=== PATIENT | male | born 2005 | race Caucasian/White ===

== ENCOUNTER 2024-06-19 20:27 | Emergency (ER) | payer BC, SELFPAY ==
[2024-06-19 20:30] VITALS: BP 126/69; PULSE 71; RESP 20; TEMP 36.6; O2SAT 98; BMI 26.4
--- NOTE | 2024-06-19 20:31 | ED_ITS ---
HPI - General Adult General Chief complaint: General Medical Stated complaint: ?Electrolyte imbalance/sent from [facility] Time Seen by Provider: 06/19/24 23:55 Source: patient Mode of arrival: ambulatory Limitations: no limitations History of Present Illness ED Provider: Dr. Andrew Richards HPI narrative: 19-year-old male with no significant past medical history who presents emergency department for evaluation of numbness and tingling of his hands and feet after fasting for 48 hours. Patient states that he was fasting in order to lose weight. He states that he was drinking water with Liquid IV which contain vitamin B vitamins: 3 (niacin), 5 (pantothenic acid), 6 (paroxetine), 12 (cobalamin), sodium, potassium, glucose. He states that he lost 6 lb over 2 days . He states that he was feeling fine while he was fasting but after eating he developed numbness of his upper and lower extremities. He states that the numbness is bilateral from the hands the elbows and from the feet to the knees. He denied facial numbness, perioral numbness or change in sensation of his tongue. He denied any weakness. He denied lightheadedness or dizziness he states that he was feeling lethargic. He went to [facility] at [facility] and they advised him to go to the emergency department for evaluation. Related Data Allergies Allergy/AdvReac Type Severity Reaction Status Date / Time amoxicillin Allergy Hives Verified 06/19/24 20:32 Review of Systems 2 Review of Systems: Yes all other systems are reviewed and are negative [facility] Past Medical History [facility] Narrative: Social history: The patient was a student at [employer] [facility] [employer]. He denies tobacco, alcohol and drug use. Social History Social History Advance Directives: No Advance Directives Information Provided: Yes Physical Exam ED Vital Signs: Vital Signs - 24 hr 06/19/24 20:30 06/19/24 23:41 Temperature 98 F 97.9 F Pulse Rate 71 62 Respiratory Rate 20 16 Blood Pressure 126/69 111/60 Pulse Oximetry 98 99 Oxygen Delivery Method Room Air Room Air BMI result Body Mass Index 26.4 Exam: General: Awake, alert in no distress Head: Normocephalic, atraumatic EENT: PERRL, Lids normal, sclera normal, conjunctiva normal, nose normal , ears normal, throat without erythema or exudates Neck: Supple, no adenopathy Lung: breath sounds symmetric, no wheezing, rales or rhonchi Chest: symmetric movement, nontender Heart: regular rate and rhythm, normal S1, S2 no murmurs or rubs Abdomen: soft, non-tender, nondistended, normal bowel sounds Back: no vertebral tenderness, no CVAT Extremities: no deformities, moves all extremities symmetrically Neuro: Awake, alert, oriented, normal speech, cranial nerves intact, moves all extremities symmetrically Psych: Pleasant, cooperative Course Course Course Narrative: RME, this is a rapid medical exam performed by Brent Banerjee please refer to primary provider for complete H&P- 19 year old male presents for evaluation of numbness and tingling in his hands and feet. He reports that he has been doing a dietary fast for two days. He was sent to the ER by his school health services. Plan for labs Medications Administered Discontinued Medications Generic Name Dose Route Start Last Admin Trade Name Freq PRN Reason Stop Dose Admin Folic Acid 1 mg 06/20/24 00:10 06/20/24 00:33 Folic Acid 1 Mg Tablet PO 06/20/24 00:11 1 mg ONCE ONE Administration Lactated Ringer's 1,000 mls @ 999 mls/hr 06/20/24 00:10 06/20/24 00:33 Lr IV 06/20/24 01:10 999 mls/hr .Q1H1M STA Administration Multivitamins/Vitamin C 1 tab 06/20/24 00:10 06/20/24 00:33 Multivitamin Tablet PO 06/20/24 00:11 1 tab ONCE ONE Administration Thiamine HCl 100 mg 06/20/24 00:10 06/20/24 00:33 Thiamine Hcl 100 Mg Tablet PO 06/20/24 00:11 100 mg ONCE ONE Administration Medical Decision Making Medical Decision Making [facility] Narrative: 19-year-old male with no significant past medical history who presents emergency department for evaluation of numbness and tingling of his hands and feet after fasting for 48 hours. Patient states that he was fasting in order to lose weight. He states that he was drinking water with Liquid IV which contain vitamin B vitamins: 3 (niacin), 5 (pantothenic acid), 6 (paroxetine), 12 (cobalamin), sodium, potassium, glucose. He was complaining of numbness in both upper extremities from the hands to the elbows and from the feet to the knees. The symptoms started after you broke his fast and started eating again. He states he was feeling lethargic as well but denied any other symptoms. Vital signs were normal. Physical exam was unremarkable. Differential diagnosis: ?Includes but is not limited to electrolyte abnormalities, thiamine deficiency, folate deficiency, malnutrition, volume depletion, dehydration Course: 00:26 My interpretation patient's laboratory evaluation is as follows: CBC was normal. CMP was normal including electrolytes, magnesium, LFTs and lipase. Patient was physical examination was unremarkable. At this time I suspect that the patient may be dehydrated and also may be malnourished from not eating for the past 48 hours . Patient may also be deficient and thiamine and folate. Patient he was ordered to get lactated Ringer's x1 L, thiamine 100 mg orally, folate 1 mg orally and a multivitamin orally. 01:26 Patient was feeling but her after the above treatment. I did discuss weight loss, exercise and nutrition with the patient. I recommended that he not do a prolonged fast like this in the future. Patient was advised to get a multivitamin with thiamine and folate into take this for the next 2 weeks. He was given printed and verbal instructions and discharged home. Admission/Observation Consideration of admission/observation: Escalation of care including admission/observation considered (Yes) Lab Data MDM Lab Attestation statement: I reviewed the patient's lab results. 06/19/24 21:23 06/19/24 21:23 Labs: Lab Results 06/19/24 06/19/24 Range/Units 21:23 21:27 WBC 5.1 (4.8-10.8) X10*3/uL RBC 5.03 (4.60-5.80) X10*6/uL Hgb 14.5 (14.0-18.0) g/dl Hct 42.2 (42.0-52.0) % MCV 83.9 (80.0-98.0) fL MCH 28.8 (27.0-33.0) pg MCHC 34.4 (31.0-36.0) g/dl RDW 12.7 (11.0-16.0) % Plt Count 181 (160-400) X10*3/uL MPV 9.8 (9.4-12.4) fL Immature Gran % (Auto) 0.2 (0.0-0.4) % Neut % (Auto) 44.4 L (45-73) % Lymph % (Auto) 37.2 (20-40) % [place] % (Auto) 8.1 (2-11) % Eos % (Auto) 9.5 H (0-4) % Baso % (Auto) 0.6 (0-2) % Lymph # (Auto) 1.9 (1.2-4.9) X10*3/uL [place] # (Auto) 0.4 (0.1-1.2) X10*3/uL Eos # (Auto) 0.5 H (0.0-0.4) X10*3/uL Baso # (Auto) 0.0 (0.0-0.2) X10*3/uL Abs Immat Gran (auto) 0.01 (0.00-0.03) X10*3/uL Absolute Neuts (auto) 2.3 (2.0-8.3) x10*3/uL Absolute Nucleated RBC 0.000 (0.0-0.012) X10*3/uL Nucleated RBC % (auto) 0.0 (0.0-0.2) /100WBC Sodium 142 (135-145) mmol/L Potassium 4.2 (3.3-5.1) mmol/L Chloride 107 (96-108) mmol/L Carbon Dioxide 27 (22-29) mmol/L Anion Gap 12 (12-20) BUN 13 (9-16) mg/dL Creatinine 0.81 (0.5-1.4) mg/dL Estim Creat Clear Calc 164.4 Estimated GFR > 60 Random Glucose 93 (60-115) mg/dL Calcium 9.6 (8.4-10.2) mg/dL Magnesium 1.9 (1.6-2.6) mg/dL Total Bilirubin 0.4 (0.0-1.0) mg/dL AST 29 (5-37) U/L ALT 26 (0-40) U/L Alkaline Phosphatase 68 (39-117) U/L Total Protein 7.1 (6.5-8.0) g/dL Albumin 4.4 (3.5-5.0) g/dL Lipase 22 (8-78) U/L Urine Color Yellow Urine Appearance Clear Urine pH 7.0 (5.0-9.0) Ur Specific [place] 1.025 (1.005-1.025) Urine Protein Negative (Neg-Trace) mg/dL Urine Glucose (UA) Negative (Negative) mg/dL Urine Ketones Trace (Negative) mg/dL Urine Blood Negative (Negative) Urine Nitrite Negative (Negative) Ur Leukocyte Esterase Negative (Negative) Urine RBC 0-2 (0-2) /HPF Urine WBC 0-5 (0-5) /HPF Ur Squamous Epith Cells 0-2 (0-2) /HPF Urine Bacteria None Seen (None Seen) Hyaline Casts 0-2 (0-2) /LPF Discharge Plan Discharge Clinical Impression: Paresthesias, Volume depletion Malnutrition Qualifiers: Protein-calorie malnutrition severity: mild Patient Disposition: Home, Self-Care Additional Instructions: Your complete blood count and comprehensive metabolic panel were normal. Your numbness (paresthesias) were most likely caused by malnutrition and dehydration/volume depletion secondary to your fasting for 48 hours. I also believe that you may have become deficient in thiamine and folate which may also explain the numbness that you were experiencing. You were treated here in the emergency department with 1 L of lactated Ringer's IV, thiamine and folate orally. I want you to take a multivitamin that it is high in thiamine and folate for the next 2 weeks. You should avoid prolonged fasting in the future. Follow-up with your doctor in 2 days. Please return to the emergency department if your symptoms get worse or if you develop any symptoms that are concerning to you. Print Language: Bengali
--- OUTSIDE RECORDS SUMMARY | 2024-06-19 21:25 | XMS_ITS | Clinical Summary ---
Author Organization [facility] Address [address] [place] [address] [address] [place] [id number] Care Team Providers Care Supervising Appraiser Name Role Phone Kelly Burger Unavailable [phone] Alan Ramirez Md Primary Care Provider Allergies Active Allergy Reactions Criticality Noted Date Comments Amoxicillin Hives 05/04/2018 Medications clindamycin-barbara zoyl peroxide 1.2 %(1 % base) -5 % Gel Apply to acne bump on nose daily until healed, and onto other individual acne bumps as spot treatment daily 45 gram 8 Active tazarotene (TAZORAC) 0.1 % Cream Apply tiny amount to nose 2x/week with moisturizer on top, increase to nightly as tolerated 30 gram 2 0 Active Sulfacetamide Sodium-Sulfur 10-4 % Pads, MedicatedIndica tions:Keratosis pilaris Apply to face, arms, legs daily prior to amlactin/ urea 60 each 3 0 Active Active Problems No known active problems Social History Tobacco Use Types Packs/Day Years Used Date Smoking Tobacco: Never Assessed Sex and Gender Information Value Date Recorded Sex Assigned at Male 02/07/2024 2:10 PM EST Legal Sex Male 10:02 AM EDT Gender Identity Male 02/07/2024 2:10 PM EST Sexual Orientation Not on file Obstetrics History Plan of Treatment Upcoming Encounters Date Type Department Care Team (Late st Contact Info) Description 08/10/2024 3:00 PM EDT Office Visit [facility] [address] [place] [address] Gisel Laird NP [address] [place] [address] Health Maintenance Due Date Last Done Comments DTAP/TDAP/TD VACCINE (1 - Tdap) 01/14/2011 HPV VACCINE (1 - Male 3-dose series) 01/14/2019 HEP B INITIAL SCREENING 01/14/2022 HEP C SCREENING 01/14/2022 HIV SCREENING 01/14/2022 HEPATITIS B VACCINE (1 of 3 - 19+ 3-dose series) 01/14/2023 PERIODIC HEALTH REVIEW 01/14/2023 COVID-19 Vaccine (3 - 2023- season) 2023 07/02/2020, 06/11/2020 FLU SEASONAL (#1) 10/23/2023 10/26/2019, 04/16/2019, 04/19/2018, Additional history exists LIPID SCREENING 2024 HAEMOPHILUS INFLUENZA VACCINE Aged Out No longer eligible based on patient's age to complete this topic HEPATITIS A VACCINE Aged Out No longe r eligible based on patient's age to complete this topic MENINGOCOCCAL VACCINE (ACWY) Aged Out No longer eligible based on patient's age to complete this topic PNEUMOCOCCAL VACCINE(S) Aged Out No l onger eligible based on patient's age to complete this topic POLIO VACCINE Aged Out No longer elig ible based on patient's age to complete this topic RSV Vaccine Infant//toddler Aged Out No longer eligible based on patient's age to complete this topic Insurance BCBS-OUTSIDE PCP Care Teams Supervising Appraiser Relationship Specialty Start Date End Date Kelly Burger [facility] [address] [place] [address] PCP - Payer 06/16/17 Alan Ramirez MD [address] [place] [id number] PCP - General Internal Medicine 02/07/24
--- OUTSIDE RECORDS SUMMARY | 2024-06-19 21:26 | XMS_ITS | Encounter Summary ---
Author Organization [facility] Address [address] [place] [address] Phone Care Team Providers Care Charge Master Coordinator Name Role Phone Kelly Burger MD Primary Care Provider [phone] Reason for Visit * Reason Comments ED Admission Encounter Details Date Type Department Care Team (Late st Contact Info) Description 06/19/2024 8:27 PM EDT - Present Hospital Encounter [facility] - Patient Ping Social History Tobacco Use Types Packs/Day Years Used Date Smoking Tobacco: Never Smokeless Tobacco: Never Alcohol Use Standard Drinks/Week Comments Never 0 (1 standard drink = 0.6 oz pur e alcohol) Hunger/Food Answer Date Recorded In the last 12 months, did y ou or your family ever eat less than you felt you should because there wasn't enough money for food? No 03/21/2023 Stable Housing Answer Date Recorded Are you worried that in the next 2 months you may not have stable housing? No 03/21/2023 Transportation Concerns Answer Date Rec orded In the last 12 months, have you or your family ever had to go without healthcare because you didn't have a way to get there? No 03/21/2023 Hazards in Home Answer Date Recorded Think about the place you li ve. Do you have problems with any of the following? Pests (mice or roaches), mold, no/not working smoke detectors, water leaks, no window guards. No 2023 Financing Utilities Answer Date Recorde d In the last 12 months, has t he electric, gas, oil, or water company threatened to shut off your services in your home? No 03/21/2023 Safety at Home Answer Date Recorded Are you or your family worried about feeling saf e in your home? No 03/21/2023 Outside Support Answer Date Recorded Do you feel that you need mo re support from other people or programs to help you care for yourself or your family? No 03/21/2023 Understanding Health Concerns Answer Da te Recorded Do you need help understandi ng your or your child's healthcare needs (diagnosis, medications, plan, etc.)? No 03/21/2023 Financing Health Concerns Answer Date R ecorded In the last 12 months, was t here a time when your child needed to see a doctor or get medications or supplies but could not because of cost? No 03/21/2023 Missing School or Work Answer Date Matt rded Did you or your child miss s chool or work because of a health problem that could have been avoided? No 03/21/2023 Sex and Gender Information Value Date Recorded Sex Assigned at Male 04/16/2019 3:32 PM EST Legal Sex Male 2:46 AM EST Gender Identity Male 04/16/2019 3:32 PM EST Sexual Orientation Straight 04/16/2019 3: 32 PM EST documented as of this encounter Plan of Treatment Not on file documented as of this encounter Visit Diagnoses Not on filedocumented in this encounter Care Teams Charge Master Coordinator Relationship Specialty Start Date End Date Kelly Burger MD [address] [facility] [address] [place] [address] PCP - General 04/13/16 documented as of this encounter
--- OUTSIDE RECORDS SUMMARY | 2024-06-19 21:26 | XMS_ITS | Clinical Summary ---
Author Organization [facility] Address [address] [place] [address] Care Team Providers Care Loom Overhauler Name Role Phone Kelly Burger Unavailable [phone] Kelly Burger Primary Care Provider [phone] Social History Tobacco Use Types Packs/Day Years Used Date Smoking Tobacco: Never Assessed Sex and Gender Information Value Date Recorded Sex Assigned at Male 03/07/2024 3:20 PM EST Legal Sex Male 7:15 PM EST Gender Identity Male 03/07/2024 3:20 PM EST Sexual Orientation Not on file Plan of Treatment Health Maintenance Due Date Last Done Comments Blood Pressure 2004 Depression Screening 2008 Hepatitis C Screening 01/14/2022 DTaP,Tdap,and Td Vaccines (1 - Tdap) 01/14/2023 COVID-19 Vaccine (2023-2 5 season) 2023 Influenza Vaccine (Season Ended) 2024 Meningococcal Vaccines Aged Out No lo nger eligible based on patient's age to complete this topic Pneumococcal Vaccine: Pediat rics (0 to 5 Years) and At-Risk Patients (6 to 64 Years) Aged Out No longer eligible b ased on patient's age to complete this topic Insurance Maintenance Organization ([facility] Address: [address] [facility] [id number] [place] [address] Care Teams Loom Overhauler Relationship Specialty Start Date End Date Kelly Burger [address] [facility] [address] [place] [id number] PCP - Insurance Assigned PCP 03/07/24 Kelly Burger [address] [facility] [address] [place] [address] PCP - General 03/07/24
--- OUTSIDE RECORDS SUMMARY | 2024-06-19 21:26 | XMS_ITS | Clinical Summary ---
Author Organization [facility] Address [address] [place] [address] Phone Care Team Providers Care Glass Handler Name Role Phone eKlly Burger MD Primary Care Provider [phone] Allergies Active Allergy Reactions Criticality Noted Date Comments Amoxicillin Hives Chicken Allergy Postive Skin test/Po sitive RAST,Anaphylaxis High 10/02/2019 Food 04/16/2020 [place] Peanuts (Food) Postive Skin test/Positive RAST 10/02/2019 Sesame Oil Postive Skin test/Positive RAST 09/21 Medications polyethylene glycol 17 GM/SCOOP powder Take by mouth. Active Clindamycin Phos-Benzoyl Perox gel APPLY TO ACNE BUMP ON NOSE DAILY UNTIL HEALED, AND ONTO OTHER ACNE BUMPS SPOT TREATMENT DAILY 0 8 Active sulfacetamide sodium-sulfur 10-5 % topical emulsion APPLY TO THE AFFECTED AREA EVERY EVENING . WASH FOR 30 SECONDS 1 Active tazarotene 0.1 % cream PLEASE SEE ATTACHED FOR DETAILED DIRECTIONS 0 Active EPINEPHrine 0.3 MG/0.3ML injection syringeIndicati ons:Food allergy Inject 0.3 mL (0.3 mg total) into the muscle Once PRN for anaphylaxis for up to 1 dose. 1 syringe Once prn anaphylaxis 2 each 4 Active Active Problems Problem Noted Date Diagnosed Date Weight loss 02/17/2024 Assessment & Plan (02/17/2024 1:08 PM EST): 10 lbs since last year Did have acute weight gain last year first year of college, patient states appetite has been good Suspect inorganic cause, no diarrhea or stomach pain fatigue to suggest IBS, IBD No B symptoms to suggest malignancy, but if cough gets worse over next week or albuterol does not work will get XRAY If any fever or sick Sx should return to office, and if any more weight loss would get blood work as well Alopecia 02/17/2024 Assessment & Plan (02/17/2024 1:26 PM EST): Referred to Dermatology, suspect male pattern but want to rule out with speciality visit of other causes Subacute cough 02/17/2024 Food allergy 03/21/2023 Assessment & Plan (03/21/2023 3:30 PM EST): Has epipen Recommend allergy fu Palpitations 11/12/2021 Overview (04/21/2022): ECG nl 10/2021 [facility] Cardiology- no restrictions 12/2021 Echo nl 03/2022 Assessment & Plan (04/15/2022 4:36 PM EST): He will be having an echo tomorrow Assessment & Plan (11/12/2021 5:15 PM EDT): Well appearing, no red flags such as symptoms with exertion Will check ECG and refer to cardiology If any increased sxs, dizziness, syncope go to ER Otherwise await ECG and cardiology evaluation If that is negative may be related to anxiety and may fu with therapist History of COVID-19 11/12/2021 Overview (11/12/2021): 07/2021 Anaphylaxis 08/24/2019 Overview (03/04/2022): 08/23/19 to unknown food after Yi food; seen at [facility] ER, epipen given Saw Allergy 09/2019 [facility] ER 02/2022 Assessment & Plan (03/21/2023 3:29 PM EST): Refilled epipen May fu with allergy Assessment & Plan (04/15/2022 4:35 PM EST): Reviewed allergy action plan recommend I do recommend following up with allergy this year prior to going to college Assessment & Plan (04/16/2021 9:41 AM EST): Reviewed action plan Has Epipen at all times Assessment & Plan (04/16/2020 3:44 PM EST): Has epipen and action plan Twin 04/17/2017 Overview (04/17/2017): Ex 31-4/7 w Loss of sense of smell 04/17/2017 Overview (04/15/2020): Saw neurology at [facility] 02/2019, nl MRI Assessment & Plan (04/19/2018 5:14 PM EST): Consider referral for further evaluation- will fu with Mom Autism 04/05/2016 Assessment & Plan (04/15/2022 4:35 PM EST): Discussed planning for college Assessment & Plan (04/16/2021 9:41 AM EST): IEP in place Doing well Assessment & Plan (04/16/2020 3:44 PM EST): Has IEP in place Assessment & Plan (04/19/2018 5:14 PM EST): IEP in place Recent neuropsych Assessment & Plan (04/18/2017 6:14 PM EST): IEP in place Constipation 04/05/2016 Assessment & Plan (04/16/2021 9:42 AM EST): Improved with miralax Assessment & Plan (04/18/2017 6:14 PM EST): On Miralax Streptococcal pharyngitis 08/05/2015 Low muscle tone 02/26/2015 Assessment & Plan (04/16/2019 4:16 PM EST): IEP in place Assessment & Plan (04/19/2018 5:14 PM EST): Discussed activity level Overweight Resolved Problems Problem Noted Date Diagnosed Date Resolved Date Left breast abscess 07/02/2019 04/16/19 21 Assessment & Plan (07/02/2019 3:33 PM EDT): Warm compresses BID-TID Area improved greatly but not completely gone Clindamycin for additional 7-14 d (may stop after 7 d if resolved) Call for any fever, fti Cellulitis 06/17/2019 04/16/2020 Assessment & Plan (06/17/2019 10:26 AM EDT): Suspect cellulitis of left chest with underlying gynecomastia. Cannot r/o abscess. Afebrile, well appearing. Asked family to take pictures at home and to outline both outer red area and area of firmness closer to nipple. - clindamycin as rx - warm compresses - tylenol/motrin prn - close observation - discussed if worse/fti, may need in person evaluation to determine if needs imaging, if drainable process, or if needs parenteral antibiotics Family will monitor and will call HPP if needed (worse, fti, fever, spreading redness, drainage, etc...) Anxiety 04/16/2019 04/16/2021 Assessment & Plan (04/16/2020 3:44 PM EST): Has therapist in place Assessment & Plan (04/16/2019 4:16 PM EST): Sees therapist Insomnia 04/05/2016 04/16/2019 Encounters Date Type Department Care Team Description 06/19/2024 8:27 PM EDT - Present Hospital Encounter [facility] - Patient Ping from Last 3 Months Immunizations Immunization Administration Dates Next Due COVID-19 Moderna, monovalent , 12+ years 09/27/2022 DTaP 01/17/2008, 6,2004,05/28,2004 HPV Vaccine 9 Valent 09/22/2015,05/09/2015,02/26 Hep A, ped/adol 04/18/2017,04/05/2016 Hep B, ped/adol 2004, 5,2004,02/08 Hib (PRP-OMP) 08/20/2005, 5,2004,03/25 Influenza, injectable, quadrivalent 10/26/2019,0 03/26/2017 Influenza, injectable, quadr ivalent, preservative free 09/27/2022,11/27/2021,11/02/2020,10/25,04/16/2019,04/19/2018,04/05/2016 ,02/09/2012,02/03/2011,01/29/2010,12/22,12/28/2008,02/14/2008, 7,12/11/2005,01/04/2005,2004 Influenza, intranasal, trivalent 01/01/2015,01/22 MMR 02/14/2008,05/10/2005 Meningococcal B Bexsero 04/15/2022,04/16/2021 Meningococcal Conj (Menactra) MCV4P 04/16/2020,0 02/26/2015 Pneumococcal Conjugate 03/01/2005,2004,2004,03/25 Polio 02/14/2008, 5,2004,03/25 Tdap 02/26/2015 Varicella 01/17/2008,02/01/2005 Family History Relation Name Status Comments Father osteosclerosis Social History Tobacco Use Types Packs/Day Years [...] Orientation Straight 04/16/2019 3: 32 PM EST Last Filed Vital Signs Vital Sign Reading Time Taken Comments Blood Pressure 124/70 03/21/2023 2:41 PM EST Pulse 83 02/17/2024 11:50 AM EST Temperature 36.6 ??C (97.9 ??F) 02/17/2024 1 1:50 AM EST Respiratory Rate - - Oxygen Saturation 99% 02/17/2024 11: 50 AM EST Inhaled Oxygen Concentration - - Weight 90.6 kg (199 lb 12.8 oz) 024 11:50 AM EST Height 185.4 cm (6' 1 ) 03/21/2023 2:41 PM EST Body Mass Index 26.36 03/21/2023 2:41 PM EST Plan of Treatment Health Maintenance Due Date Last Done Comments Influenza Vaccines (#1) 2023 09/28/19, 11/27/2021, 11/02/2020, Additional history exists COVID-19 Vaccine (2023-2 5 season) 2023 09/27/2022, 11/27/2021, 02/18/2021, Additional history exists DTaP,Tdap,and Td Vaccines (7 - Td or Tdap) 02/26/2025 02/26/2015, 01/17/2008, 08/20/2005, Additional history exists Hepatitis B Vaccines Completed 2004, 2004, 2004, Additional history exists Pneumococcal Vaccine Completed 03/01/2005, 2004, 2004, Additional history exists HIB Vaccines Completed 08/20/2005, 02/2004, 2004, Additional history exists Varicella Vaccines Completed 01/17/2008, 02/01/2005 IPV Vaccines Completed 02/14/2008, 02/2004, 2004, Additional history exists MMR Vaccines Completed 02/14/2008, 05/10/2005 HPV Vaccines Completed 09/22/2015, 04/21, 02/26/2015 Hepatitis A Vaccines Completed 04/18/2017, 04/05/19 17 Meningococcal Vaccine Completed 04/16/2020, 016 Men B Vaccine Completed 04/15/2022, 04/16/2021 Insurance [facility] HMO Care Teams Glass Handler Relationship Specialty Start Date End Date Kelly Burger MD [address] [place] [address] [place] [address] PCP - General 04/13/16
[2024-06-19 21:27] LABS: MANUAL DIFF FLAG NO
[2024-06-19 21:29] LABS: Basophils Percent Auto 0.6 % (0-2); Eosinophils Absolute Auto 0.5 X10*3/uL (0.0-0.4); Eosinophils Percent Auto 9.5 % (0-4); Hematocrit 42.2 % (42.0-52.0); Hemoglobin 14.5 g/dl (14.0-18.0); Imm Gran Abs Auto 0.01 X10*3/uL (0.00-0.03); Imm Gran Pct Auto 0.2 % (0.0-0.4); Lymphocytes Absolute Auto 1.9 X10*3/uL (1.2-4.9); Lymphocytes Percent Auto 37.2 % (20-40); Mean Corpuscular HGB Conc 34.4 g/dl (31.0-36.0); Mean Corpuscular Hemoglobin 28.8 pg (27.0-33.0); Mean Corpuscular Volume 83.9 fL (80.0-98.0); Mean Platelet Volume 9.8 fL (9.4-12.4); Monocytes Absolute Auto 0.4 X10*3/uL (0.1-1.2); Monocytes Percent Auto 8.1 % (2-11); Neutrophils Absolute Auto 2.3 x10*3/uL (2.0-8.3); Neutrophils Percent Auto 44.4 % (45-73); Platelet Count 181 X10*3/uL (160-400); Red Blood Count 5.03 X10*6/uL (4.60-5.80); Red Cell Distribution Width 12.7 % (11.0-16.0); White Blood Count 5.1 X10*3/uL (4.8-10.8)
[2024-06-19 21:33] LABS: Appearance Urine Clear; Color Urine Yellow; Glucose Urine UA Negative (Negative); Leukocyte Esterase Urine Negative (Negative); Nitrite Urine Negative (Negative); Specific Gravity - Urine 1.025 (1.005-1.025); Urine Blood Negative (Negative); Urine Ketones Trace mg/dL (Negative); Urine Protein Negative (Neg-Trace)
[2024-06-19 21:36] LABS: Bacteria Urine None Seen (None Seen); Hyaline Casts Urine 0-2 /LPF (0-2); RBC Urine 0-2 /HPF (0-2); Squamous Epithelial Cell Urine 0-2 /HPF (0-2); WBC Urine 0-5 /HPF (0-5)
[2024-06-19 21:45] LABS: Alanine Aminotransferase 26 U/L (0-40); Albumin Level 4.4 g/dL (3.5-5.0); Alkaline Phosphatase 68 U/L (39-117); Anion Gap 12 (12-20); Aspartate Amino Transferase 29 U/L (5-37); Bilirubin Total 0.4 mg/dL (0.0-1.0); Blood Urea Nitrogen 13 mg/dL (9-16); Calcium 9.6 mg/dL (8.4-10.2); Carbon Dioxide 27 mmol/L (22-29); Chloride 107 mmol/L (96-108); Creatinine Clr Calc Pharmacy 164.4; Estimated Glomerular Filt Rate > 60; Glucose Random 93 mg/dL (60-115); Lipase 22 U/L (8-78); Magnesium 1.9 mg/dL (1.6-2.6); Potassium 4.2 mmol/L (3.3-5.1); Sodium 142 mmol/L (135-145); Total Protein 7.1 g/dL (6.5-8.0)
[2024-06-19 23:41] VITALS: BP 111/60; PULSE 62; RESP 16; TEMP 36.6; O2SAT 99
[2024-06-20] MEDS: Lactated Ringers 1,000 ML 999 ML IV (00:33)
[2024-06-20] MEDS: Folic Acid 1 MG TABLET PO (00:33)
[2024-06-20] MEDS: Thiamine HCL 100 MG TABLET PO (00:33)
[2024-06-20] MEDS: Multivitamin TABLET 1 TAB PO (00:33)
[2024-06-20 01:50] VITALS: BP 118/76; PULSE 60; RESP 14; TEMP 36.5; O2SAT 99
[2024-06-20 01:51] VITALS: BP 118/76; PULSE 60; RESP 14; TEMP 36.5; O2SAT 99
== END 2024-06-20 01:52 | disposition home or self-care (01) ==
PROVIDERS: Physician Assistant; Emergency Provider Emergency Medicine Emergency Medical Services
DX: E86.9 Volume depletion, unspecified (principal); R20.2 Paresthesia of skin
CPT/HCPCS: 36415; 80053; 81001; 83690; 83735; 85025; 99283; 99284; J7120

== ENCOUNTER → 2024-10-25 13:00 | Outpatient (BNV) | payer BC, SELFPAY | PROVIDERS: PCP Physician Assistant Medical; Visit Provider Internal Medicine | DX: I49.3 Ventricular premature depolarization (principal); I49.49 Other premature depolarization | CPT/HCPCS: 93244 ==

== ENCOUNTER → 2024-10-25 13:00 | Outpatient (REF) | payer BC, SELFPAY ==
--- NOTE | 2024-10-25 | HM_ITS ---
* Total monitoring time 3 days. * Underlying rhythm is sinus with an average rate of 75/Min. * Rare supraventricular ectopy. * Rare ventricular ectopy. * No significant pauses or high-grade AV blocks. * No patient markers or diary events. MTDD
--- OUTSIDE RECORDS SUMMARY | 2024-10-31 14:56 | XMS_ITS | Clinical Summary ---
Author Organization [facility] Address [address] [place] [address] Phone Care Team Providers Care Chief Technical Officer Name Role Phone Kelly Burger MD Primary Care Provider + Kelly Burger MD Unavailable [phone] Kelly Burger MD Unavailable [phone] Alan Teixeira MD Unavailable [phone] Immunizations Immunization Administration Dates Next Due Pfizer Purple Cap SARS-CoV-2 02/18/2021 Social History Tobacco Use Types Packs/Day Years Used Date Smoking Tobacco: Never Assessed Sex and Gender Information Value Date Recorded Sex Assigned at Not on file Legal Sex Male 5:51 PM EDT Gender Identity Not on file Sexual Orientation Not on file Last Filed Vital Signs Vital Sign Reading Time Taken Comments Blood Pressure 114/68 03/29/2022 3:04 PM EST Pulse 78 03/29/2022 3:04 PM EST Temperature - - Respiratory Rate 16 03/03/2022 5:18 PM EST Oxygen Saturation 98% 03/29/2022 3:04 PM EST Inhaled Oxygen Concentration - - Weight 86.7 kg (191 lb 2.2 oz) 04/16/2022 8:40 A M EST Height 185.9 cm (6' 1.19 ) 04/16/2022 8:40 AM ES T Body Mass Index 25.09 04/16/2022 8:40 AM EST Plan of Treatment Health Maintenance Due Date Last Done Comments HIV Screening 2004 MMR Vaccines (1 of 1 - Stand hoa series) 01/14/2005 DTaP/Tdap/Td Vaccines (1 - Tdap) 01/14/2011 Varicella Vaccines (1 of 2 - 13+ 2-dose series) 01/14/2017 HPV Vaccines (1 - Male 3-dos e series) 01/14/2019 Hepatitis C Screening 01/14/2022 Meningococcal B Vaccine (2 o f 2 - Bexsero SCDM 2-dose series) 10/13/2022 04/15/2022 Hepatitis B Vaccines (1 of 3 - 19+ 3-dose series) 01/14/2023 Influenza Vaccine (#1) 2024 HIB Vaccines Aged Out No longer eligi ble based on patient's age to complete this topic Hepatitis A Vaccines Aged Out No long er eligible based on patient's age to complete this topic IPV Vaccines Aged Out No longer eligi ble based on patient's age to complete this topic Meningococcal Vaccine Aged Out No jaleesa phuc eligible based on patient's age to complete this topic Pneumococcal Vaccine: Pediat rics (0 to 5 Years) and At-Risk Patients (6 to 49 Years) Aged Out No longer eligi ble based on patient's age to complete this topic Rotavirus Vaccines Aged Out No longer eligible based on patient's age to complete this topic Care Teams Chief Technical Officer Relationship Specialty Start Date End Date Kelly Burger MD [address] [place] [address] [place] [address] [place] [address] PCP - General 04 Kelly Burger MD [address] [place] [address] [place] [address] [place] [id number] PCP - Insurance PCP 12/27/18 Kelly Burger MD [address] [place] [address] PCP - Clinical PCP 06/12/11 Alan Teixeira MD [address] [place] [address] Associate Attending Cardiology 04/08/22
--- OUTSIDE RECORDS SUMMARY | 2024-10-31 14:56 | XMS_ITS | Clinical Summary ---
Author Organization [facility] Address [address] [place] [address] Phone Care Team Providers Care Front Maker Name Role Phone Unavailable Primary Care Provider Unavailabl e Allergies Active Allergy Reactions Criticality Noted Date Comments Amoxicillin Hives Chicken Allergy Postive Skin test/Po sitive RAST,Anaphylaxis High 10/02/2019 Food 04/16/2020 [place] Peanuts (Food) Postive Skin test/Positive RAST 10/02/2019 [...] Palpitations 11/12/2021 Overview (04/21/2022): ECG nl 10/2021 [facility] Cardiology- no restrictions 12/2021 Echo nl 03/2022 [...] Overview (03/04/2022): 08/23/19 to unknown food after [place] food; seen at [facility] ER, epipen given Saw Allergy 09/2019 [facility] ER 02/2022 Assessment & Plan (03/21/2023 3:29 [...] smell 04/17/2017 Overview (04/15/2020): Saw neurology at [facility] 02/2019, nl MRI Assessment & Plan (04/19/2018 [...] PM EST): Sees therapist Insomnia 04/05/2016 04/16/2019 Immunizations Immunization Administration Dates Next Due COVID-19 [...] 83 02/17/2024 11:50 AM EST Temperature 36.6 C (97.9 F) 02/17/2024 11:50 AM EST Respiratory Rate - - Oxygen Saturation 99% 02/17/2024 11: 50 AM EST Inhaled Oxygen Concentration - - Weight 90.6 kg (199 lb 12.8 oz) 024 11:50 AM EST Height 185.4 cm (6' 1 ) 03/21/2023 2:41 PM EST Body Mass Index 26.36 03/21/2023 2:41 PM EST Plan of Treatment Health Maintenance Due Date Last Done Comments Influenza Vaccines (#1) 2024 09/28/19, 11/27/2021, 11/02/2020, Additional history exists COVID-19 Vaccine (6 - 2024-2 6 season) 2024 09/27/2022, 11/27/2021, 02/18/2021, Additional history exists DTaP,Tdap,and [...] Men B Vaccine Completed 04/15/2022, 04/16/2021 Insurance HMO
--- OUTSIDE RECORDS SUMMARY | 2024-10-31 14:56 | XMS_ITS | Clinical Summary ---
Author Organization [facility] Address [address] [address] Phone Care Team Providers Care Acid Conditioning Worker Name Role Phone Kelly Burger MD Primary Care Provide r Allergies No known active allergies Medications POLYETHYLENE GLYCOL 3350 (MIRALAX ORAL) Dose: 12.75 GM; Form: Not available ; Route: PO; Frequency : QD; Direction s: Not available ; Details: Not available ; Date: 2 07/01/2011 Active PEDIATRIC MULTIVITAMIN ORAL Dose: 1 TAB; Form: Not available ; Route: PO; Frequency : QD; Direction s: Not available ; Details: Not available ; Date: 2 02/09/2012 Active Active Problems Problem Noted Date Diagnosed Date Loss of sense of smell 10/03/2024 Palpitations 11/12/2021 Overview (10/03/2024): ECG nl 10/2021 [facility] Cardiology- no restrictions 12/2021 Echo nl 03/2022 Autistic disorder 04/05/2016 Constipation 11/20/2008 Overview (04/12/2014): Constipation; *See attached note in LMR Eczema 03/18/2008 Overview (04/12/2014): Eczema; *See attached note in LMR Developmental delay 02/16/2007 Overview (04/12/2014): Developmental delay; *See attached note in LMR; gross motor Overweight 02/16/2007 Overview (04/12/2014): Overweight; *See attached note in LMR History of reactive airway disease 01/13/2007 Overview (04/12/2014): H/O reactive airway disease; *See attached note in LMR Aseptic meningitis 04/19/2005 Overview (04/12/2014): Aseptic meningitis; admitted to 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 Rudd, retest age 1 Otitis media 03/12/2005 Overview (04/12/2014): Otitis media; *See attached note in LMR; Bilateral; 05/02/0682-[id number] ES Uncoded Ex 31 wk twin 2004 Overview (04/12/2014): Ex 31 wk twin; *See attached note in LMR Gastroesophageal reflux disease 2004 Overview (04/12/2014): GERD Encounters Date Type Department Care Team Description 10/03/2024 8:20 PM EDT Office [place] [facility] [place] [address] Leandra Meneses, ENTERPRISE CLOUD ARCHITECT Tingling in extremities (Primary Dx); Chest tightness; Dizziness and giddiness from Last 3 Months Immunizations Immunization Administration Dates Next Due DTaP, unspecified formulation 01/17/2008, 006 DTaP-Hep B-IPV 2004,2004,2004 [id number] FORMULATION 01/04/2009 Hepatitis B, unspecified formulation 2004 Hib, unspecified formulation 08/20/2005, 2004,2004,2004 Influenza quadrivalent nasal 02/09/2012 Influenza, Unspecified Formulation 02/03,01/29/2010,12/28/2008,2007,01/07/2007,12/11/2005,01/04/2005,1 MMR 02/14/2008,05/10/2005 Pneumococcal conjugate, PCV 7 03/01/2005 ,2004,2004,2004 Polio, Unspecified Formulation 02/14/2008 Varicella 01/17/2008,02/01/2005 Social History Tobacco Use Types Packs/Day Years Used Date Smoking Tobacco: Never Assessed Education Answer Date Recorded Are you interested in more education? Not on tamera e 06/17/2022 Are you concerned about learning? Not on file 06/17/2022 No 06/17/2022 No 06/17/2022 Digital Access Answer Date Recorded No 07/19/2022 No 07/19/2022 No 07/19/2022 Reliable internet access at home? Not on file 07/19/2022 Device with a working camera? Not on file Sex and Gender Information Value Date Recorded Sex Assigned at Not on file Legal Sex Male 7:23 PM EST Gender Identity Not on file Sexual Orientation Not on file Last Filed Vital Signs Vital Sign Reading Time Taken Comments Blood Pressure 118/78 10/03/2024 8:27 PM EDT Pulse 60 10/03/2024 8:27 PM EDT Temperature 36.9 C (98.4 F) 10/03/2024 8:27 PM EDT Respiratory Rate - - Oxygen Saturation 98% 10/03/2024 8:27 PM EDT Inhaled Oxygen Concentration - - Weight 88.5 kg (195 lb) 10/03/2024 8:27 PM EDT Height 185.4 cm (6' 1 ) 10/03/2024 8:27 PM EDT Body Mass Index 25.73 10/03/2024 8:27 PM EDT Plan of Treatment Health Maintenance Due Date Last Done Comments DEVELOPMENTAL/BEHAVIORAL SCREENING (PHQ, PSC, or SWYC) 01/14/2007 DEPRESSION SCREENING 2016 HPV VACCINES (2 - Male 2-dose series) 03/24/2016 09/22/2015 SMOKING Hx and SMOKELESS TOBACCO SCREENING 01/14/2017 HIV ONE-TIME SCREENING (18-65 YEARS) 01/14/2022 INFLUENZA VACCINE (#1) 2024 , 11/27/2021, 11/02/2020, Additional history exists COVID-19 VACCINE ( - season) 2024 09/27/2022, 11/27/2021, 02/18/2021, Additional history exists COMBINED DTaP,Tdap,Td (7 - Td or Tdap) 02/26/2025 02/26/2015, 01/17/2008, 08/20/2005, Additional history exists PNEUMOCOCCAL VACCINES (0-49 years) Aged Out 03/01/2005, 2004, 2004, Additional history exists No longer eligible based on patient's age to complete this topic HIB VACCINES Completed 08/20/2005, 0602/2004, 2004, Additional history exists VARICELLA VACCINES Completed 01/17/2008, 02/01/2005 MMR VACCINES Completed 02/14/2008, 05/10/2005 HEPATITIS A VACCINES Completed 04/18/2017, 04/05/19 17 MENINGOCOCCAL VACCINES (ACWY) Completed 04/16/2020 MENINGOCOCCAL VACCINES (B) Completed 04/15/2022, ADOLESCENT UNIVERSAL LIPID SCREENING Completed 08/10/2024 HEPATITIS C SCREENING Completed 08/10/2024 Medical Devices Not on file Procedures Procedure Name Priority Date/Time Associated Diagnosis Comments POCT GLUCOSE Routine 10/03/2024 9:03 PM EDT Tingling in extremities ECG 12-LEAD Routine 10/03/2024 8:51 PM EDT Chest tightness Dizziness and giddiness from Last 3 Months Results * POCT Glucose (10/03/2024 9:03 PM EDT) Glucose 95 70 - 100 mg/dL [facility] Other 10/03/2024 9:03 PM EDT Leandra Meneses ENTERPRISE CLOUD ARCHITECT POINT OF CA RE TEST ORDERABLES Final Result [facility] [address] [place] [address], [facility] [phone] * ECG 12-LEAD (10/03/2024 8:51 PM EDT) Narrative EXTERNAL NON-INTERFACED REF LAB - 10/03/2024 8:51 PM EDT Type of EKG: Standard. Global (34427). Notes EKG shows NSR. No ST elevation or depression. T wave inversions in aVR. No T wave abnormalities. No previous EKG available for comparison. Leandra Meneses CNP ECG ORDERAB LES Final Result Performing Organization Address City/[facility] Co de Phone Number EXTERNAL NON-INTERFACED REF LAB from Last 3 Months Insurance [facility] Care Teams Acid Conditioning Worker Relationship Specialty Start Date End Date Kelly Burger MD [address] [facility] [address] [place] [address] PCP - General 08/21/13 Additional Source Comments The information contained in this document represents components of the legal health record. It is not the complete legal health record.[facility]
--- OUTSIDE RECORDS SUMMARY | 2024-10-31 14:56 | XMS_ITS | Clinical Summary ---
Author Organization [facility] Address [address] [place] [address] Care Team Providers Care Kitchen Work Supervisor Name Role Phone Kelly Burger Unavailable [phone] Kelly Burger Primary Care Provider [phone] Social History Tobacco Use Types Packs/Day Years Used Date Smoking Tobacco: Never Assessed Sex and Gender Information Value Date Recorded Sex Assigned at Male 03/07/2024 3:20 PM EST Legal Sex Male 7:15 PM EST Gender Identity Male 03/07/2024 3:20 PM EST Sexual Orientation Not on file Plan of Treatment Health Maintenance Due Date Last Done Comments Blood Pressure 2004 Depression Screening 2008 Meningococcal B Vaccines (1 of 2 - Standard) 2020 Hepatitis C Screening 01/14/2022 DTaP,Tdap,and Td Vaccines (1 - Tdap) 01/14/2023 COVID-19 Vaccine (1 - 2023-2 5 season) 2023 Influenza Vaccine (#1) 2024 Meningococcal Vaccines Aged Out No lo nger eligible based on patient's age to complete this topic Pneumococcal Vaccine: Pediat rics (0 to 5 Years) and At-Risk Patients (6 to 64 Years) Aged Out No longer eligible b ased on patient's age to complete this topic Insurance [facility] Care Teams Kitchen Work Supervisor Relationship Specialty Start Date End Date Kelly Burger [address] [facility] [address] [place] [address] PCP - Insurance Assigned PCP 03/07/24 Kelly Burger [address] [facility] [address] [place] [address] PCP - General 03/07/24
== END ==
LOC: HO.CARD 13:00
PROVIDERS: PCP Physician Assistant Medical; Visit Provider Physician Assistant Medical
DX: R00.2 Palpitations (principal)
CPT/HCPCS: 93242